=== PATIENT | female | born 1970 | race Caucasian/White ===

== ENCOUNTER 2018-03-20 23:33 | Emergency (ER) | payer BC, MEDICARE ==
[~2018-03-20] VITALS: Ht 165.1 cm; Wt 53.0 kg
[2018-03-21] MEDS ORDERED: HYDROmorphone 2 MG/ML, 1ML ONE (01:38)
[2018-03-21] MEDS ORDERED: HYDROmorphone 1 MG/ML, 1ML IM ONE (02:00)
[2018-03-21 02:37] VITALS: BP 113/79
== END 2018-03-21 02:50 | disposition home or self-care (01) ==
LOC: ED 23:59
DX: R53.1 Weakness (principal); M51.16 Intervertebral disc disorders with radiculopathy, lumbar region; Z86.718 Personal history of other venous thrombosis and embolism; Z90.710 Acquired absence of both cervix and uterus
CPT/HCPCS: 72148; 96372; 99284; J1170